=== PATIENT | male | born 1995 | race Caucasian/White ===

== ENCOUNTER 2021-02-24 02:05 | Emergency (ER) | payer MEDICAID ==
[~2021-02-24] VITALS: Ht 180.3 cm; Wt 109.0 kg
[2021-02-24] MEDS ORDERED: ALBUTEROL (0.083%) 2.5MG/3ML NEB HHN ONE (03:30)
[2021-02-24] MEDS ORDERED: P20 PO (06:43)
[2021-02-24] MEDS ORDERED: ALBU6.7H11 INH (06:43)
[2021-02-24 06:50] VITALS: BP 118/84
== END 2021-02-24 07:07 | disposition home or self-care (01) ==
LOC: ER 02:05
DX: J45.901 Unspecified asthma with (acute) exacerbation (principal); F12.10 Cannabis abuse, uncomplicated
CPT/HCPCS: 71045; 93005; 94640; 99283; Z7610